=== PATIENT | female | born 1940 | race Caucasian/White ===

== ENCOUNTER → 2016-04-26 | Outpatient (CLI) | payer MEDICARE, OTHER ==
[2016-04-26 10:49] LABS: Basophils # (auto) 0 uL; Eosinophils # (auto) 0.1 uL; Eosinophils % (auto) 2.8 % (0.0-7.0); Hematocrit 42.9 % (36.0-46.0); Hemoglobin 14.1 g/dL (12.2-16.2); Lymphocytes # (auto) 2.3 uL; Mean Corpuscular Hemoglobin 29.3 pg (28.0-32.0); Mean Corpuscular Hgb Conc. 32.8 g/dL (32.0-36.0); Mean Corpuscular Volume 89.3 fL (80.0-100.0); Monocytes # (auto) 0.4 uL; Neutrophils # (auto) 1.8 uL; Neutrophils % (auto) 39.2 % (37.0-80.0); Platelet Count (auto) 312 10^3/uL (140-450); Red Cell Distribution Width 13.6 % (11.6-16.0); White Blood Cell 4.7 10^3/uL (4.4-10.8)
[2016-04-26 10:58] LABS: Urine Bilirubin Negative (Negative); Urine Blood Negative /uL (Negative); Urine Color Yellow (Yellow); Urine Glucose Normal (Normal); Urine Ketone Negative (Negative); Urine Mucus FEW (None Seen); Urine Nitrite Negative (Negative); Urine RBC <1 /hpf (0 - 4); Urine Squamous Epithelial Cell MOD /hpf (<5); Urine Urobilinogen Normal (Negative)
[2016-04-26 11:21] LABS: Albumin 3.6 g/dL (3.4-5.0); Bilirubin, Total 0.6 mg/dL (0.2-1.0); Calcium 8.9 mg/dL (8.5-10.1); Potassium 3.5 mmol/L (3.5-5.1); Total Protein 7.3 g/dL (6.4-8.2)
== END | disposition home or self-care (01) ==
LOC: LAB 10:00
PROVIDERS: ATTEND Internal Medicine
DX: Z00.00 Encounter for general adult medical examination without abnormal findings (principal)
CPT/HCPCS: 36415; 80053; 80061; 81001; 84443; 85025

== ENCOUNTER 2022-01-26 09:14 | Inpatient (IN) | payer MEDICARE, OTHER ==
[~2022-01-26] VITALS: Ht 157.5 cm; Wt 72.0 kg
[2022-01-26 09:58] LABS: Basophils # (auto) 0.1 10 ^3/uL (0-0.2); Basophils % (auto) 1.5 % (0.0-2.0); Eosinophils # (auto) 0.2 10 ^3/uL (0-0.8); Eosinophils % (auto) 4.8 % (0.0-7.0); Hematocrit 37.1 % (36.0-46.0); Hemoglobin 12.6 g/dL (12.2-16.2); Lymphocytes # (auto) 1.6 10 ^3/uL (0.4-5.4); Lymphocytes % (auto) 41.6 % (10.0-50.0); Mean Corpuscular Hemoglobin 30.3 pg (28.0-32.0); Mean Corpuscular Hgb Conc. 33.8 g/dL (32.0-36.0); Mean Corpuscular Volume 89.7 fL (80.0-100.0); Monocytes # (auto) 0.4 10 ^3/uL (0-1.3); Neutrophils # (auto) 1.6 10 ^3/uL (1.6-8.6); Neutrophils % (auto) 41.1 % (37.0-80.0); Nucleated Red Blood Cells % 0.1 %; Red Blood Cells 4.14 10^6/uL (4.0-5.20); Red Cell Distribution Width 13.5 % (11.8-14.3); White Blood Cell 3.8 10^3/uL (4.4-10.8)
[2022-01-26 10:27] LABS: Albumin 2.9 g/dL (3.4-5.0); Calcium 8.5 mg/dL (8.5-10.1); Magnesium 2.3 mg/dL (1.6-2.6); Potassium 3.6 mmol/L (3.5-5.1)
[2022-01-26 10:30] LABS: BUN/Creatinine Ratio 13.5; Bilirubin, Total 0.4 mg/dL (0.2-1.0)
[2022-01-26 11:18] LABS: Urine Bacteria FEW /hpf (None Seen); Urine Blood Negative /uL (Negative); Urine WBC 1 /hpf (0 - 5)
[2022-01-26] MEDS ORDERED: SODIUM CHLORIDE 0.9% 1,000 ML IV ONE (12:00)
[2022-01-26] MEDS ORDERED: ACETAMINOPHEN 325 MG TAB PO PRN (13:15)
[2022-01-26] MEDS ORDERED: ONDANSETRON HCL 4 MG/2 ML VIAL IV PRN (13:15)
[2022-01-26] MEDS ORDERED: DOCUSATE SOD 100 MG CAP PO PRN (13:15)
[2022-01-26] MEDS ORDERED: HYDROcodone-ACET 5/325MG TAB PO ONE (15:30)
[2022-01-26] MEDS: SODIUM CHLORIDE 0.9% 1,000 ML IV SCH (16:50)
[2022-01-26 18:55] LABS: Creatinine, Urine 45 mg/dL (30.0-125.0); Sodium Urine 99 mmol/L (40-220)
[2022-01-26] MEDS: MECLIZINE HCL 25 MG TAB PO PRN (20:41)
[2022-01-26] MEDS: MELATONIN 5 MG TAB PO PRN (23:34)
[2022-01-27 07:29] LABS: Basophils # (auto) 0 10 ^3/uL (0-0.2); Basophils % (auto) 0.7 % (0.0-2.0); Eosinophils # (auto) 0.2 10 ^3/uL (0-0.8); Eosinophils % (auto) 3.4 % (0.0-7.0); Hematocrit 37.3 % (36.0-46.0); Hemoglobin 12.4 g/dL (12.2-16.2); Lymphocytes # (auto) 1.5 10 ^3/uL (0.4-5.4); Lymphocytes % (auto) 33.2 % (10.0-50.0); Mean Corpuscular Hemoglobin 29.9 pg (28.0-32.0); Mean Corpuscular Hgb Conc. 33.4 g/dL (32.0-36.0); Mean Corpuscular Volume 89.7 fL (80.0-100.0); Monocytes # (auto) 0.4 10 ^3/uL (0-1.3); Monocytes % (auto) 8.2 % (0.0-12.0); Neutrophils # (auto) 2.4 10 ^3/uL (1.6-8.6); Neutrophils % (auto) 54.5 % (37.0-80.0); Nucleated Red Blood Cells % 0.1 %; Red Blood Cells 4.15 10^6/uL (4.0-5.20); Red Cell Distribution Width 13.6 % (11.8-14.3); White Blood Cell 4.4 10^3/uL (4.4-10.8)
[2022-01-27] MEDS: SODIUM CHLORIDE 0.9% 1,000 ML IV SCH (07:30)
[2022-01-27 07:39] LABS: Cholesterol 213 mg/dL (< 200)
[2022-01-27 07:41] LABS: BUN/Creatinine Ratio 14.6; Calcium 8.4 mg/dL (8.5-10.1); HDL Cholesterol 78 mg/dL (40-59); LDL Cholesterol 106 mg/dL (< 100); Potassium 3.8 mmol/L (3.5-5.1); Triglycerides 164 mg/dL (< 150)
[2022-01-27 07:43] LABS: Bilirubin, Total 0.4 mg/dL (0.2-1.0); Total Protein 6.1 g/dL (6.4-8.2)
[2022-01-27] MEDS: HYDROcodone-ACET 5/325MG TAB PO PRN ×2 (10:16→20:31)
[2022-01-27] MEDS: PANTOPRAZOLE 40 MG/10 ML VIAL INJ IV SCH (11:00)
[2022-01-27] MEDS: ENOXAPARIN SOD 40 MG/0.4 ML SYRINGE SC SCH (11:19)
[2022-01-27 12:02] LABS: Free T4 (Free Thyroxine) 0.84 ng/dL (0.89-1.76)
[2022-01-27 12:03] LABS: T3 Total 1.06 ng/mL (0.60-1.81)
[2022-01-27 13:43] VITALS: BP_SYST 101; BP_SYST 109; BP_SYST 115; BP_DIAS 56; BP_DIAS 59; BP_DIAS 65
[2022-01-27 14:00] LABS: Folate (Folic Acid) 9.48 ng/mL (5.38-24)
[2022-01-27] MEDS ORDERED: MET25T PO (14:13)
[2022-01-27] MEDS ORDERED: GABA300C10 PO (14:13)
[2022-01-27] MEDS ORDERED: MIRT1TAB38 PO (14:13)
[2022-01-27] MEDS ORDERED: DULO1CAP4 PO (14:13)
[2022-01-27] MEDS ORDERED: IBUP600T28 PO (14:13)
[2022-01-27] MEDS ORDERED: DONE5TAB80 PO (14:13)
[2022-01-27] MEDS ORDERED: HYDR12.55 PO (14:13)
[2022-01-27] MEDS ORDERED: ASPirin 81 mg TAB PO ONE (14:15)
[2022-01-27] MEDS ORDERED: LEVOTHYROXINE SODIUM 25 MCG TAB PO ONE (14:15)
[2022-01-27] MEDS ORDERED: CYANOCOBALAMIN (B-12) 1000 MCG/1 ML VIAL IM ONE (14:15)
[2022-01-27 17:00] VITALS: BP 138/59
[2022-01-27 20:00] VITALS: BP 140/78
[2022-01-27] MEDS: ATORVASTATIN 20 MG TAB PO SCH (20:31)
[2022-01-27 22:00] VITALS: BP 140/78
[2022-01-27] MEDS: MELATONIN 5 MG TAB PO PRN (22:13)
[2022-01-28 05:00] VITALS: BP 147/91
[2022-01-28] MEDS: LEVOTHYROXINE SODIUM 25 MCG TAB PO SCH (06:12)
[2022-01-28 07:30] VITALS: BP 126/68
[2022-01-28 07:38] VITALS: BP 126/68
[2022-01-28] MEDS ORDERED: ERGOCALCIFEROL 50,000 UNIT(1.25MG) CAP PO SCH (09:00)
[2022-01-28] MEDS: ENOXAPARIN SOD 40 MG/0.4 ML SYRINGE SC SCH (09:27)
[2022-01-28] MEDS: PANTOPRAZOLE 40 MG/10 ML VIAL INJ IV SCH (09:27)
[2022-01-28] MEDS: CYANOCOBALAMIN (B-12) 1000 MCG/1 ML VIAL IM SCH (09:28)
[2022-01-28] MEDS: DULoxetine HCL 30 MG CAP PO SCH (09:29)
[2022-01-28] MEDS: ASPirin 81 mg TAB PO SCH (09:29)
[2022-01-28] MEDS: HYDROcodone-ACET 5/325MG TAB PO PRN ×3 (09:29→18:23)
[2022-01-28] MEDS ORDERED: LIDOCAINE 5% TOPICAL PATCH TOP ONE (10:15)
[2022-01-28] MEDS ORDERED: METOPROLOL SUCCINATE XL 50 MG TAB PO ONE (10:15)
[2022-01-28] MEDS: MECLIZINE HCL 25 MG TAB PO PRN (10:18)
[2022-01-28 11:51] VITALS: BP 119/77
[2022-01-28] MEDS: Ensure HIGH Protein Chocolate 8oz Bottle PO SCH (13:47)
[2022-01-28] MEDS: GABAPENTIN 300 MG CAP PO SCH ×2 (13:47→21:36)
[2022-01-28 16:18] VITALS: BP 111/58
[2022-01-28 21:16] VITALS: BP 107/59
[2022-01-28] MEDS: DONEPEZIL HYDROCHLORIDE 5 MG TAB PO SCH (21:36)
[2022-01-28] MEDS: MIRTAZAPINE 30 MG TAB PO SCH (21:36)
[2022-01-28] MEDS: ATORVASTATIN 20 MG TAB PO SCH (21:36)
[2022-01-28] MEDS: ZOLPIDEM TARTRATE 5 MG TAB PO PRN (21:36)
[2022-01-29 04:38] VITALS: BP 110/62
[2022-01-29] MEDS: LEVOTHYROXINE SODIUM 25 MCG TAB PO SCH (06:00)
[2022-01-29] MEDS: GABAPENTIN 300 MG CAP PO SCH ×3 (06:00→21:14)
[2022-01-29] MEDS: Ensure HIGH Protein Chocolate 8oz Bottle PO SCH ×3 (07:21→14:39)
[2022-01-29 07:33] VITALS: BP 101/62
[2022-01-29 08:16] VITALS: BP 101/62
[2022-01-29] MEDS: CYANOCOBALAMIN (B-12) 1000 MCG/1 ML VIAL IM SCH (09:58)
[2022-01-29] MEDS: HYDROcodone-ACET 5/325MG TAB PO PRN ×2 (10:01→21:15)
[2022-01-29] MEDS: ASPirin 81 mg TAB PO SCH (10:01)
[2022-01-29] MEDS: PANTOPRAZOLE 40 MG TAB PO SCH (10:02)
[2022-01-29] MEDS: DULoxetine HCL 30 MG CAP PO SCH (10:04)
[2022-01-29] MEDS: METOPROLOL SUCCINATE XL 50 MG TAB PO SCH (10:10)
[2022-01-29] MEDS: LIDOCAINE 5% TOPICAL PATCH TOP SCH (10:11)
[2022-01-29 12:08] VITALS: BP 119/73
[2022-01-29 16:25] LABS: Urine Bacteria FEW /hpf (None Seen); Urine Blood 3+ /uL (Negative); Urine Specific Gravity 1.004 (1.001-1.035); Urine WBC 53 /hpf (0 - 5)
[2022-01-29 16:55] VITALS: BP 105/58
[2022-01-29] MEDS: ATORVASTATIN 20 MG TAB PO SCH (21:14)
[2022-01-29] MEDS: MIRTAZAPINE 30 MG TAB PO SCH (21:15)
[2022-01-29] MEDS: DONEPEZIL HYDROCHLORIDE 5 MG TAB PO SCH (21:15)
[2022-01-29 22:00] VITALS: BP 104/59
[2022-01-29] MEDS ORDERED: levoFLOXacin 500MG 100 ML IV SCH (22:00)
[2022-01-29] MEDS: ZOLPIDEM TARTRATE 5 MG TAB PO PRN (22:23)
[2022-01-30] MEDS: Ensure HIGH Protein Chocolate 8oz Bottle PO SCH ×3 (00:44→12:17)
[2022-01-30 05:00] VITALS: BP 116/58
[2022-01-30 05:23] LABS: Basophils # (auto) 0 10 ^3/uL (0-0.2); Basophils % (auto) 0.9 % (0.0-2.0); Eosinophils # (auto) 0.2 10 ^3/uL (0-0.8); Eosinophils % (auto) 4.2 % (0.0-7.0); Hematocrit 36.1 % (36.0-46.0); Lymphocytes # (auto) 1.6 10 ^3/uL (0.4-5.4); Lymphocytes % (auto) 37.3 % (10.0-50.0); Mean Corpuscular Hemoglobin 30.1 pg (28.0-32.0); Mean Corpuscular Hgb Conc. 33.1 g/dL (32.0-36.0); Mean Corpuscular Volume 90.9 fL (80.0-100.0); Monocytes # (auto) 0.5 10 ^3/uL (0-1.3); Monocytes % (auto) 11.3 % (0.0-12.0); Neutrophils # (auto) 1.9 10 ^3/uL (1.6-8.6); Neutrophils % (auto) 46.3 % (37.0-80.0); Nucleated Red Blood Cells % 0.1 %; Red Blood Cells 3.98 10^6/uL (4.0-5.20); Red Cell Distribution Width 13.3 % (11.8-14.3); White Blood Cell 4.2 10^3/uL (4.4-10.8)
[2022-01-30 05:43] LABS: BUN/Creatinine Ratio 26.9; Calcium 8.7 mg/dL (8.5-10.1); Magnesium 2.6 mg/dL (1.6-2.6); Phosphorus 4.5 mg/dL (2.5-4.90); Potassium 4.5 mmol/L (3.5-5.1)
[2022-01-30] MEDS: GABAPENTIN 300 MG CAP PO SCH (06:06)
[2022-01-30] MEDS: LEVOTHYROXINE SODIUM 25 MCG TAB PO SCH (06:06)
[2022-01-30 09:00] VITALS: BP 111/58
[2022-01-30] MEDS: PANTOPRAZOLE 40 MG TAB PO SCH (09:23)
[2022-01-30] MEDS: ASPirin 81 mg TAB PO SCH (09:23)
[2022-01-30] MEDS: CYANOCOBALAMIN (B-12) 1000 MCG/1 ML VIAL IM SCH (09:24)
[2022-01-30] MEDS: METOPROLOL SUCCINATE XL 50 MG TAB PO SCH (09:33)
[2022-01-30] MEDS: LIDOCAINE 5% TOPICAL PATCH TOP SCH (09:33)
[2022-01-30] MEDS ORDERED: LEV25T PO (11:24)
[2022-01-30] MEDS ORDERED: MECL25TA18 PO (11:24)
[2022-01-30] MEDS ORDERED: LEVO500T31 PO (11:24)
[2022-01-30] MEDS ORDERED: DONE5TAB80 PO (11:24)
[2022-01-30] MEDS ORDERED: CYAN1TAB14 PO (11:24)
[2022-01-30] MEDS ORDERED: ERGO1CAP23 PO (11:24)
[2022-01-30 13:00] VITALS: BP 125/66
[2022-01-30 13:24] VITALS: BP 116/58
[2022-01-30] MEDS ORDERED: levoFLOXacin 500MG 100 ML IV SCH (22:00)
[2022-01-31] MEDS ORDERED: DULoxetine HCL 30 MG CAP PO SCH (10:00)
== END 2022-01-30 15:35 | disposition home or self-care (01) | DRG 74 ==
LOC: EDBD 09:14 → ER 09:14 → TELE 13:10 → TELE-CENTR 01-27 13:08
PROVIDERS: ADMIT Nurse Practitioner Family; ATTEND Internal Medicine
DX: G90.8 Other disorders of autonomic nervous system (principal); E44.0 Moderate protein-calorie malnutrition; N17.9 Acute kidney failure, unspecified; Z20.822 Contact with and (suspected) exposure to COVID-19; E03.9 Hypothyroidism, unspecified; E53.8 Deficiency of other specified B group vitamins; W18.39XA Other fall on same level, initial encounter; E55.9 Vitamin D deficiency, unspecified; E78.5 Hyperlipidemia, unspecified; F02.80 Dementia in other diseases classified elsewhere, unspecified severity, without behavioral disturbance, psychotic disturbance, mood disturbance, and anxiety; F17.200 Nicotine dependence, unspecified, uncomplicated; G30.9 Alzheimer's disease, unspecified; I10 Essential (primary) hypertension; R29.6 Repeated falls; Z82.49 Family history of ischemic heart disease and other diseases of the circulatory system; Z85.828 Personal history of other malignant neoplasm of skin; Y93.89 Activity, other specified; Y92.89 Other specified places as the place of occurrence of the external cause; Y99.8 Other external cause status; Z68.29 Body mass index [BMI] 29.0-29.9, adult
CPT/HCPCS: 36415; 70450; 70551; 71045; 72148; 72192; 73030; 80048; 80053; 80061; 81001; 82306; 82570; 82607; 82746; 83036; 83735; 83880; 84100; 84300; 84439; 84443; 84480; 84484; 85025; 87086; 93005; 93306; 93886; 95819; 97110; 97116; 97163; 97530; C9113; G0378; J1956

== ENCOUNTER 2022-06-28 13:48 | Emergency (ER) | payer OTHER ==
[~2022-06-28] VITALS: Ht 157.5 cm; Wt 60.4 kg
[~2022-06-28 13:48] MED LIST: CYAN1TAB14 PO; DONE5TAB80 PO; ERGO1CAP23 PO; HYDR12.55 PO; LEV25T PO; LEVO500T31 PO; MECL25TA18 PO; MET25T PO; MIRT1TAB38 PO
[2022-06-28 18:26] LABS: Basophils # (auto) 0 10 ^3/uL (0-0.2); Basophils % (auto) 0.7 % (0.0-2.0); Eosinophils # (auto) 0.1 10 ^3/uL (0-0.8); Eosinophils % (auto) 1.5 % (0.0-7.0); Hemoglobin 14.1 g/dL (12.2-16.2); Lymphocytes # (auto) 2.2 10 ^3/uL (0.4-5.4); Lymphocytes % (auto) 37.1 % (10.0-50.0); Mean Corpuscular Hemoglobin 30.1 pg (28.0-32.0); Mean Corpuscular Hgb Conc. 33.6 g/dL (32.0-36.0); Mean Corpuscular Volume 89.6 fL (80.0-100.0); Monocytes # (auto) 0.6 10 ^3/uL (0-1.3); Monocytes % (auto) 9.8 % (0.0-12.0); Neutrophils % (auto) 50.9 % (37.0-80.0); Nucleated Red Blood Cells % 0.3 %; Red Blood Cells 4.68 10^6/uL (4.0-5.20); Red Cell Distribution Width 12.1 % (11.8-14.3)
[2022-06-28 18:52] LABS: Albumin 3.6 g/dL (3.4-5.0); Calcium 9.7 mg/dL (8.5-10.1); Potassium 4.3 mmol/L (3.5-5.1)
[2022-06-28 18:53] LABS: Lactic Acid w/Reflex 2.4 mmol/L (0.4-2.0)
[2022-06-28 18:55] LABS: BUN/Creatinine Ratio 23.3; Bilirubin, Total 0.4 mg/dL (0.2-1.0); Total Protein 7.3 g/dL (6.4-8.2); Uric Acid 4.2 mg/dL (2.6-6.0)
[2022-06-28] MEDS ORDERED: DICL1GEL50 TD (21:38)
[2022-06-28] MEDS ORDERED: METH4PAK PO (21:38)
[2022-06-28 22:06] VITALS: BP 105/62
== END 2022-06-28 22:11 | disposition home or self-care (01) ==
LOC: ER 13:48
DX: M79.645 Pain in left finger(s) (principal); M19.90 Unspecified osteoarthritis, unspecified site; F03.90 Unspecified dementia, unspecified severity, without behavioral disturbance, psychotic disturbance, mood disturbance, and anxiety; Z88.0 Allergy status to penicillin
CPT/HCPCS: 36415; 73140; 80053; 83605; 84550; 85025

== ENCOUNTER → 2024-10-21 | Outpatient (CLI) | payer OTHER ==
[~2024-10-21] MED LIST changes: +DICL1GEL73 TD; +MECL-90 PO; -MECL25TA18 PO; +METH4PAK PO
[2024-10-21 11:12] LABS: Hematocrit 42.6 % (36.0-46.0); Hemoglobin 14.4 g/dL (12.2-16.2); Mean Corpuscular Hemoglobin 29.5 pg (28.0-32.0); Mean Corpuscular Volume 87.2 fL (80.0-100.0); Nucleated Red Blood Cells % 0.1 %
[2024-10-21 11:51] LABS: Alanine Aminotransferase 13 U/L (7-40); Albumin 4.4 g/dL (3.2-4.8); Alkaline Phosphatase 95 U/L (46-116); Anion Gap 7 (5-15); BUN/Creatinine Ratio 17.9 (10.0-20.0); Bilirubin, Total 0.6 mg/dL (0.2-1.0); Blood Urea Nitrogen 22 mg/dL (9-23); Calcium 9.8 mg/dL (8.7-10.4); Chloride 102 mmol/L (98-107); Glucose 96 mg/dL (74-106); Potassium 3.9 mmol/L (3.5-5.1); Sodium 141 mmol/L (136-145); Total Protein 7.0 g/dL (5.7-8.2); Triglycerides 113 mg/dL (< 150)
[2024-10-21 11:53] LABS: Carbon Dioxide 32 mmol/L (20-31); Cholesterol 226 mg/dL (< 200); HDL Cholesterol 77 mg/dL (40-59)
== END | disposition home or self-care (01) ==
LOC: LAB 10:52
PROVIDERS: ATTEND Licensed Practical Nurse
DX: I10 Essential (primary) hypertension (principal); E78.5 Hyperlipidemia, unspecified; E55.9 Vitamin D deficiency, unspecified; F02.80 Dementia in other diseases classified elsewhere, unspecified severity, without behavioral disturbance, psychotic disturbance, mood disturbance, and anxiety; Z00.01 Encounter for general adult medical examination with abnormal findings
CPT/HCPCS: 36415; 80053; 80061; 82043; 82306; 83036; 84443; 85025